=== PATIENT | male | born 1945 | race Caucasian/White ===

== ENCOUNTER 2024-09-23 17:13 | Emergency (ER) | payer MEDICARE, BC ==
[~2024-09-23] VITALS: Ht 180.3 cm; Wt 110.0 kg
[2024-09-23] MEDS: MORPHINE SULFATE 4 MG/ML INJ (FOR IV/IM USE) IV STA ×2 (17:36→19:50)
[2024-09-23] MEDS: ONDANSETRON HCL 4MG/2ML INJ IV STA ×2 (17:36→19:50)
[2024-09-23 19:20] VITALS: TEMP 36.66960
[2024-09-23] MEDS: MIDAZOLAM HCL 2 MG/2 ML VIAL IV ONE (19:59)
[2024-09-23] MEDS: PROPOFOL 200MG/20ML VIAL IV ONE (20:15)
[2024-09-23 21:42] VITALS: TEMP 98.6; O2SAT 99
[2024-09-23 23:25] VITALS: BP 156/68; PULSE 50; RESP 14; O2SAT 99
== END 2024-09-23 23:26 | disposition home or self-care (01) ==
LOC: ER 17:13
DX: S73.005A Unspecified dislocation of left hip, initial encounter (principal); X58.XXXA Exposure to other specified factors, initial encounter; Y93.89 Activity, other specified; Y92.89 Other specified places as the place of occurrence of the external cause; Y99.8 Other external cause status; I48.91 Unspecified atrial fibrillation
CPT/HCPCS: 99285; 27250; 96374; 73502; 96376; 99152; L1830; J2250; J2405; J2704; J2270